=== PATIENT | male | born 1950 | race Caucasian/White ===

== ENCOUNTER 2018-10-12 08:09 | Observation (INO) ==
[2018-10-12 08:43] LABS: Basophils # (auto) 0.02 K/uL (0-0.2); Basophils % (auto) 0.2 %; Eosinophils # (auto) 0.21 K/uL (0-0.5); Eosinophils % (auto) 2.4 %; Hematocrit (blood only) 43.4 % (42-52); Hemoglobin 14.7 g/dL (14.0-18.0); Immature Granulocytes # (auto) 0.02 K/uL (0.00-0.02); Immature Granulocytes % (auto) 0.2 %; Lymphocytes # (auto) 1.09 K/uL (1.2-3.4); Lymphocytes % (auto) 12.4 %; Mean Corpuscular Hgb Conc 33.9 g/dL (32-36); Mean Platelet Volume 9.4 fL (7.4-10.4); Monocytes # (auto) 0.59 K/uL (0.11-0.59); Monocytes % (auto) 6.7 %; Neutrophils # (auto) 6.83 K/uL (1.4-6.5); Neutrophils % (auto) 78.1 %; Platelet Count 220 K/uL (130-400); RDW Coefficient of Variation 13.8 % (11.5-14.5); RDW Standard Deviation 45.4 fL (36.4-46.3); Red Blood Count 4.82 M/uL (4.7-6.1); White Blood Count 8.76 K/uL (4.8-10.8)
[2018-10-12 08:52] LABS: iSTAT Creatinine 1.1 mg/dl (0.6-1.3); iSTAT Ionized Calcium 1.2 mmol/l (1.12-1.32); iSTAT Potassium 4.5 mEq/L (3.3-5.0)
[2018-10-12 09:00] LABS: Alanine Aminotransferase 35 U/L (12-78); Albumin Level 3.7 gm/dl (3.4-5.0); Aspartate Aminotransferase 20 U/L (15-37); BUN Creatinine Ratio 14.3 (10-20); Blood Urea Nitrogen 17 mg/dl (7-18); Calcium 9.2 mg/dl (8.5-10.1); Carbon Dioxide 28 mmol/L (21-32); Chloride 110 mmol/L (98-107); Creatinine Clr Calc Pharmacy 75.1 ml/min; Est GFR (African American) 71.6; Est GFR (Non-African American) 61.8; Glucose 131 mg/dl (70-99); Magnesium 2.3 mg/dl (1.8-2.4); Potassium 4.7 mmol/L (3.5-5.1); Sodium 141 mmol/L (136-145)
[2018-10-12 09:05] LABS: Alkaline Phosphatase 69 U/L (45-117); Bilirubin,Total 0.6 mg/dl (0.2-1); Globulin 3.6 gm/dl (2.5-4.0); Total Protein 7.3 gm/dl (6.4-8.2); Troponin I < 0.015 ng/ml (0-0.045)
[2018-10-12 09:06] LABS: Partial Thromboplastin Ratio 0.9; Partial Thromboplastin Time 25.7 Seconds (21.0-31.0); Prothrombin Time 10.3 Seconds (9.0-12.0)
[2018-10-12] MEDS ORDERED: OPTIRAY 320 125ml IV PRN (09:10)
--- NOTE | 2018-10-12 09:26 | CT Scan Report ---
CT head/brain wo con CLINICAL HISTORY: 68 years-old Male with Stroke evaluation . Acute strokelike symptoms TECHNIQUE: Multiple axial CT images of the head were obtained without contrast. A dose lowering tech nique was utilized adhering to the principles of ALARA. COMPARISON: CTA had neck of same day. FINDINGS: No acute intracranial hemorrhage, midline shift, intracranial mass, hydrocephalus, territorial ischem ia or abnormal extra-axial collection. Mild age-related involutional changes. Senescent calcification s of the lentiform nuclei. Mild degree of patchy white matter hypodensities suggest chronic microvasc ular ischemic disease. Encephalomalacia of the anteromedial left frontal lobe compatible with area of remote infarct. Mild degree of cerebral vascular calcifications are noted. The calvarium is intact. The paranasal sinuses, mastoid air cells, and middle ear cavities are clear . IMPRESSION: 1. No acute intracranial abnormality. 2. Suggestion of mild chronic microvascular ischemic disease with encephalomalacia about the anterome dial left frontal lobe compatible with remote infarct. The above report was generated using voice recognition software. It may contain grammatical, syntax o r spelling errors. Electronically signed by: Ruben Joshua M.D. 10/12/2018 9:25 AM
--- NOTE | 2018-10-12 09:36 | CT Scan Report ---
CT angio neck with con, CT angio head w con CLINICAL HISTORY: 68 years-old Male with cva. Acute strokelike symptoms COMPARISON STUDY: CT head of same day TECHNIQUE: Following the IV administration of 120 mL of Optiray 320, CT angiogram of the head and nec k was performed from the aortic arch to the skull base. Images are reviewed in the axial, sagittal, a nd coronal planes. 3-D MIPS images are created and assessed. IV contrast was administered without com plication. All measurements were calculated based on NASCET criteria. A dose lowering technique was utilized adhering to the principles of ALARA. CT DOSE: 1218.58 mGy.cm FINDINGS: Imaged opacified pulmonary arterial tree is unremarkable. The imaged bilateral subclavian arteries ap pear patent. Bilateral common carotid arteries are patent. Mild mixed plaque about the right carotid bulb results in less than 50% luminal narrowing. Severe mixed plaque of the left carotid bulb results in approximately 50% luminal narrowing of the proximal left ICA (image 275 series 6). Calcified plaq ue about the bilateral cavernous and supraclinoid segments without high-grade stenosis. The imaged bi lateral middle and anterior cerebral arteries appear normal. Anterior communicating artery appears no rmal. The left vertebral artery emanates strictly from the aortic arch. Calcified plaque at the origin of t he left vertebral artery is noted without high-grade stenosis. Vertebral arteries appear to be codomi nant and are widely patent. The basilar and bilateral posterior cerebral arteries are patent and with in normal limits. Cerebral venous sinuses are patent. No pneumothorax. The lung apices appear clear. Subcentimeter hypodense left thyroid nodule. No adenop athy. Orbits are unremarkable. Multilevel degenerative changes of the cervical spine. Mastoid air neema ls and middle ear cavities are clear. Mild mucosal thickening of the maxillary sinuses. No abnormal i ntra-axial enhancement. Hypodensity of the anteromedial left frontal lobe is suggestive of encephalom alacia from prior infarct. IMPRESSION: 1. No aneurysm, dissection, high-grade stenosis or proximal branch occlusion. 2. Severe mixed plaque about the left carotid bulb results in 50% luminal narrowing of the proximal l eft ICA. 3. Encephalomalacia about the anteromedial left frontal lobe from remote infarct. The above report was generated using voice recognition software. It may contain grammatical, syntax o r spelling errors. Electronically signed by: Ruben Joshua M.D. 10/12/2018 9:35 AM
--- NOTE | 2018-10-12 12:49 | History & Physical Report ---
Date of Service October 12, 2018 Assessment & Plan (1) Aphasia: -Admit to telemetry -Patient presenting after he developed expressive aphasia for about 15 to 20 minutes at 630 this morning -History of prior CVA 06/2016 that resulted in right CEA -In the ED, head CT and head/neck CTA negative for acute findings; neck CTA shows severe mixed plaque about the left carotid bulb results in 50% luminal narrowing of the proximal left ICA -Patient already receiving high intensity statin, dual antiplatelet therapy with aspirin and Brilinta (had coronary stents placed 06/2018) -Obtain brain MRI and EEG as per neurology recommendations -Neuroccks -Recently had echo 06/2018 at [facility], will obtain records; no need to repeat at this time (2) CAD (coronary artery disease): -History of stents in 2008 and 06/2018 -Continue beta-tamar, statin, aspirin, Brilinta (3) DVT prophylaxis: -SCDs, ambulate History of Present Illness Chief Complaint: Difficulty speaking Primary Care Provider: Porsha Junior PA-C 68-year-old male who presents to the ED with difficulty speaking. Patient was driving to [place] from [place] early this morning and around 6:30 AM while driving, he developed expressive aphasia. Patient's was with him at the time and reports that he was only able to get a couple of words out. Symptoms lasted for about 15 to 20 minutes and resolved on their own. There is no facial droop or drooling noted. Patient denies unilateral weakness, numbness, tingling. No headache, blurred or double vision. Patient reports he otherwise been feeling well recently. No chest pain or shortness of breath. Denies abdominal pain, nausea, vomiting, diarrhea. No lightheadedness, dizziness, diaphoresis, syncopal events. He denies any urinary symptoms. In the ED, head CT and head/neck CTA are all negative for acute findings. Labs are unremarkable. Allergies Allergy/AdvReac Type Severity Reaction Status Date / Time No Known Allergies Allergy Unverified 10/12/18 08:48 Home Medications Home Medications Medication Instructions Recorded Confirmed Type aspirin [Aspir-81] 81 mg PO DAILY 10/12/18 10/12/18 History famotidine 20 mg PO BID 10/12/18 10/12/18 History fenofibric acid (choline) 135 mg PO DAILY 10/12/18 10/12/18 History gabapentin 100 mg PO HS 10/12/18 10/12/18 History glucosamine sulfate [Glucosamine] 500 mg PO DAILY 10/12/18 10/12/18 History metoprolol tartrate 25 mg PO BID 10/12/18 10/12/18 History rosuvastatin 30 mg PO HS 10/12/18 10/12/18 History ticagrelor [Brilinta] 90 mg PO BID 10/12/18 10/12/18 History Past Med/Surg History Medical History RLS (restless legs syndrome) (Chronic) Hemochromatosis (Chronic) CAD (coronary artery disease) (Chronic) ~ 2009 - 3 stents to LAD 06/2018 - stents x 2 to unknown vessel CVA (cerebral vascular accident) (Chronic) Surgical History History of right-sided carotid endarterectomy (Chronic) History of appendectomy (Chronic) Family History Mother Diabetes Social History Preferred Language: Uzbek Communication Ability: Effective Mixologist Required: No Beliefs That Will Affect Care: None Current Living Situation: Spouse Other Information That Helps Us Care for You: No Feels Safe at Home: Yes Safety Concerns: Feels Safe At This Time Smoking Status: Never smoker Hx Alcohol Use: Yes Alcohol type: beer Alcohol Intake Frequency: Rarely Hx Substance Use: No Review of Systems Review of Systems: ROS per HPI, all other systems reviewed and negative Physical Exam Constitutional: WD/WN, vitals as above Eyes: PERRL, conjunctivae normal, anicteric sclerae ENMT: external ear and nose normal, oropharynx normal Respiratory: normal respiratory effort, lungs clear to auscultation Cardiovascular: Rate/Rhythm: regular rate and regular rhythm Vessels: normal peripheral pulses Extremities: no edema Gastrointestinal (Abdomen): normal bowel sounds, soft, nontender, no he patosplenomegaly Musculoskeletal: no cyanosis or clubbing, extremities motor strength 5/5 Skin: no rashes, warm and dry Neurologic: PERRL, EOMI, accommodation nl, no face palsy, no dysarthria moves all extremities and awake Motor/Sensory: no pronator drift Coordination: normal azdkwf-ji-seut test and normal dhsn-cm-ohcg test Psychiatric: A+Ox3, euthymic affect Results & Data Vital Signs (Past 12 Hours) Vital Signs Temp Pulse Pulse Resp BP BP Pulse Ox 10/12/18 12:04 63 16 125/69 10/12/18 11:05 58 L 16 115/51 L 10/12/18 10:37 61 16 114/70 10/12/18 08:59 60 16 139/117 H 98 10/12/18 08:15 36.9 C 59 L 18 119/64 96 Laboratory Results Short CBC 10/12/18 Range/Units 08:34 WBC 8.76 (4.8-10.8) K/uL Hgb 14.7 (14.0-18.0) g/dL Hct 43.4 (42-52) % Plt Count 220 (130-400) K/uL BMP 10/12/18 08:34 Sodium 141 Potassium 4.7 Chloride 110 H Carbon Dioxide 28 BUN 17 Creatinine 1.20 Glucose 131 H Calcium 9.2 Cardiac Enzymes 10/12/18 Range/Units 08:34 Troponin I < 0.015 (0-0.045) ng/ml Liver Function 10/12/18 Range/Units 08:34 Total Bilirubin 0.6 (0.2-1) mg/dl AST 20 (15-37) U/L ALT 35 (12-78) U/L Alkaline Phosphatase 69 (45-117) U/L Albumin 3.7 (3.4-5.0) gm/dl Diagnostic Findings HEAD CT IMPRESSION: 1. No acute intracranial abnormality. 2. Suggestion of mild chronic microvascular ischemic disease with encephalomalacia about the anteromedial left frontal lobe compatible with remote infarct. HEAD/NECL CTA IMPRESSION: 1. No aneurysm, dissection, high-grade stenosis or proximal branch occlusion. 2. Severe mixed plaque about the left carotid bulb results in 50% luminal narrowing of the proximal left ICA. 3. Encephalomalacia about the anteromedial left frontal lobe from remote infarct. Code Status & VTE Plan VTE Prophylaxis Plan VTE Prophylaxis will be ordered: Yes Supervising Physician Co-Signing Physician Notes Patient is a 68-year-old male with history of coronary artery disease, CVA, S/P right carotid endarterectomy and other problems presents with history of transient expressive aphasia which currently resolved. MRI brain showed no acute lesions. Currently symptoms resolved. Patient is thought to have TIA. Plan to continue aspirin, Brilinta, Crestor. Will obtain EEG as per neurology recommendations. CTA suggestive of 50% luminal narrowing of the proximal left ICA. Will check lipid panel and increase Crestor to 40 mg if LDL greater than 70. Appreciate neurology input. Will observe overnight. Will recommend follow-up with vascular surgery as outpatient upon discharge. On exam patient is moderately built and nourished, no apparent distress, normocephalic atraumatic, lungs are clear to auscultation, S1-S2, no murmur, abdomen soft nontender, grossly no focal neurological deficits, no pedal edema. I personally reviewed the record. Patient is interviewed and examined at bedside. Patient's care is coordinated with Natalia Grant JEWELRY ESTIMATOR. Please refer to the documentation above for details of patient's presentation and for discussion of other issues.
[2018-10-12] MEDS ORDERED: GADOBUTROL 65ML VIAL IV PRN (12:51)
--- NOTE | 2018-10-12 13:36 | Magnetic Resonance Report ---
MR brain wo/w con HISTORY: 68 years-old Male CVA acute strokelike symptoms COMPARISON: CT head, CTA head neck of same day TECHNIQUE: Multiplanar multisequence MRI of the brain was obtained both with and without the use of 1 0.5 mL Gadavist FINDINGS: Road Mixer Operator localizer images demonstrate no gross extracranial abnormality. There is no restricted diffusio n to suggest acute or subacute infarction. Midline structures including the corpus callosum, brainste m, optic chiasm, pituitary and pineal glands appear unremarkable on the sagittal T1 series. No cerebe llar tonsillar herniation. Degenerative changes noted about the imaged cervical spine. No acute intra cranial hemorrhage, midline shift, abnormal extra axial collection, hydrocephalus or intracranial mas s. Encephalomalacia and gliosis about the anteromedial left frontal lobe near the vertex compatible w ith area of remote infarct. Mild to moderate patchy T2/FLAIR hyperintensities are noted about the whi te matter suggestive of chronic microvascular ischemic disease. There is no abnormal intra-axial or e xtra-axial enhancement identified. The major flow voids at the level of the skull base appear patent. Mastoid air cells are clear. Mild mucosal thickening of the nasal turbinates and ethmoid air cells. The skull, orbits and soft tissues are unremarkable. IMPRESSION: 1. No acute intracranial abnormality, specifically no acute or subacute infarction. 2. No abnormal enhancement. 3. Suggestion of mild to moderate chronic microvascular ischemic disease. 4. Remote infarct about the anterosuperior left frontal lobe near the vertex. The above report was generated using voice recognition software. It may contain grammatical, syntax o r spelling errors. Electronically signed by: Ruben Joshua M.D. 10/12/2018 1:35 PM
[2018-10-12] MEDS ORDERED: ACETAMINOPHEN 325 MG TAB PO PRN (13:48)
[2018-10-12] MEDS ORDERED: PHARMACIST DISCHARGE MED REC CONSULT PRN (13:48)
--- NOTE | 2018-10-12 14:08 | Neurology Consultation ---
Date of Consultation October 12, 2018 Assessment & Plan (1) TIA (transient ischemic attack): 1. MRI- no evidence of new stroke 2. primary team requesting records from [facility] for TTE or whether to repeat was just done at [facility] 3. continue aspirin 81 mg and Brillinta 90 mg BID for now 4. cardiology as outpatient for any further evaluation 5. continue Rosuvastatin 30 mg lipids not checked - will defer to cardiology for any changes 6. PT/OT speech for discharge needs- does not appear to be any current needs 7. CTA- severe mixed plaque -left carotid bulb 50 % luminal narrowing- being followed treating medically at this point- vascular for further review as outpatient 8. optimize DM, HLD, HTN LDL <70 Supervising Physician Co-Signing Physician Notes I have seen and discussed above patient with Dr Mariusz Montenegro, neurology I reviewed the above case, reviewed the imaging studies and the history and briefly examined this man in the company of his and by cell phone with his daughter who is a radiologist here in [place]. This man has a history of a prior right carotid endarterectomy, a silent left subcortical frontal infarction, and known 50% stenosis apparently of the left internal carotid all according to my review of his history from [facility] where almost all of his recent medical care has been rendered He had a myocardial infarction this past spring, had 2 stents placed, and had hi s aspirin and Plavix combination switched to aspirin and Brilinta as noted above and was doing well up until this morning when on route from his home to [place] on room 522 between [facility] and [facility], he suddenly lost the ability to speak. He was able to operate a motor vehicle, had no issues with comprehension, and by the time he reached [place] the event had cleared completely leaving and is awake no fixed sensorimotor deficits involving the right hemisphere, no facial weakness or numbness, and no residual speech defect. He apparently contacted his daughter who suggested that in lieu of stopping at [facility] that he presented himself here to [place] and indeed he did so, I was informed by the ER staff, discussed his case, and suggested that in addition to the CT angiographic studies and CT scans, that he have an MRI of the brain and an EEG. The former has shown no evidence for recent infarction and the latter is going to be canceled as upon my review of the history there is nothing about this is suggest a focal seizure. At this time the evaluation shows 50% stenosis of the left internal carotid artery with apparently fairly prominent plaque at the region of the left carotid bulb according to the radiology report. I do not know if this is worse than a prior study at [facility] and not sure the comparison between the 2 is going to be possible may actually be more of academic impractical importance of his is clear this man has had a transient ischemic event involving the left hemisphere which fortunately his left nothing clinically or image was in its wake I would not make any changes in his antiplatelet therapy here and will suggest that he be observed overnight and that he contact his vascular surgeon and network internship at [facility] tomorrow for their input. I would not be surprised if they simply recommend taking an additional baby aspirin a day and be seen clinically within the next week or 2 If he is stable overnight I certainly would clear him for discharge and I do not think neurology would need to visit him again in the afternoon to approve this. My suspicions are that he would be a candidate for left carotid endarterectomy based on the presence of fairly prominent plaque despite the lack of stenosis but insufficient time may have evolved since the myocardial infarction and e lective surgery may be simply good should be avoided for another few months. All these decisions of course are going to rest with his prior vascular surgeon and cardiology team at [facility] Mariusz Montenegro MD History of Present Illness Reason for Consultation: TIA/CVA Requesting Physician: Fer Lawler MD Attending Physician: Fer Lawler MD History of Present Illness Kady is a 68 year old male with a [facility] right sided carotid endartectomy, RLS, CAD with stents placed in June 2018 after a heart attack June 25. He presented to the ED with difficulty speaking. He was driving to [employer] from [place] early this morning and around 6:30 AM while driving, he developed expressive aphasia. His was with him and encouraged him to stop for breakfast and she continued the drive to [employer]. It scarred her because he was driving but he didn't have any facial droop and it only lasted for about 15 to 20 minutes and resolved on their own. He had a stroke in the past but he didn't think anything was wrong but he got dress incorrectly and his knew something was wrong and brought him to [facility]. That is when they discovered the right carotid artery block and did a CEA. He is currently on Brilanta and aspirin after his heart attack because of the stent placement. He is a non smoker, minimal EtOH use. Denies unilateral weakness, or facial droop, numbness, tingling, CP, SOB, abdominal pain, nausea, vomiting, diarrhea,dizziness, diaphoresis, syncopal events. Allergies Allergy/AdvReac Type Severity Reaction Status Date / Time No Known Allergies Allergy Unverified 10/12/18 08:48 Home Medications Home Medications Medication Instructions Recorded Confirmed Type aspirin [Aspir-81] 81 mg PO DAILY 10/12/18 10/12/18 History famotidine 20 mg PO BID 10/12/18 10/12/18 History fenofibric acid (choline) 135 mg PO DAILY 10/12/18 10/12/18 History gabapentin 100 mg PO HS 10/12/18 10/12/18 History glucosamine sulfate [Glucosamine] 500 mg PO DAILY 10/12/18 10/12/18 History metoprolol tartrate 25 mg PO BID 10/12/18 10/12/18 History rosuvastatin 30 mg PO HS 10/12/18 10/12/18 History ticagrelor [Brilinta] 90 mg PO BID 10/12/18 10/12/18 History Patient History Medical History RLS (restless legs syndrome) (Chronic) Hemochromatosis (Chronic) CAD (coronary artery disease) (Chronic) ~ 2009 - 3 stents to LAD 06/2018 - stents x 2 to unknown vessel CVA (cerebral vascular accident) (Chronic) Surgical History History of right-sided carotid endarterectomy (Chronic) History of appendectomy (Chronic) Family History Mother Diabetes Social History Preferred Language: Urdu Communication Ability: Effective Industrial Hygiene Manager Required: No Beliefs That Will Affect Care: None Current Living Situation: Spouse Other Information That Helps Us Care for You: No Feels Safe at Home: Yes Safety Concerns: Feels Safe At This Time Smoking Status: Never smoker Hx Alcohol Use: Yes Alcohol type: beer Alcohol Intake Frequency: Rarely Hx Substance Use: No Physical Exam Physical Exam: Physical Exam: Constitutional: appearance nourished, healthy and normal Ears, Nose, Mouth and Throat: mucous membranes moist, no injection and skin normal, eyes normal Cardiovascular: normal S-1 and S-2 and regular rate and rhythm Respiratory: clear to auscultation (CTA) and no rales, rhonchi or wheeze Musculoskeletal: no peripheral edema and good distal pulses Skin: no stigmata of neurocutaneous disease noted and normal and intact, well healed right sided neck scar Eyes: extraocular muscles intact (EOMI) and pupils equal, round and reactive to light (PERRL) NEUROLOGIC EXAMINATION: Mental status: Alert and interactive Oriented to full date and location Oriented to person, place, identifies pen, button, thumb Speech fluent with no evidence of aphasia Cranial Nerves slight flattening left nasolabial fold Reflexes: Deep tendon reflexes were symmetrical and graded 2/5 Sensory: no sensory deficits, light cool touch Coordination: finger to nose no bi pass, rapid hand movements intact bilaterally Gait/Stance: Posture normal. sitting up Motor: Negative for pronator drift of out stretched arms with eyes closed. Strength: hand featheredger and reducer machine biceps triceps deltoids 5/5, hip flex plantar flex ext 5/5 bilaterally Results & Data Vital Signs (Past 12 Hours) Vital Signs Temp Pulse Pulse Resp BP BP Pulse Ox 10/12/18 12:04 63 16 125/69 10/12/18 11:05 58 L 16 115/51 L 10/12/18 10:37 61 16 114/70 10/12/18 08:59 60 16 139/117 H 98 10/12/18 08:15 36.9 C 59 L 18 119/64 96 Laboratory Results Abnormal lab results 10/12/18 10/12/18 10/12/18 Range/Units 08:20 08:34 08:34 Neut # (Auto) 6.83 H (1.4-6.5) K/uL Lymph # (Auto) 1.09 L (1.2-3.4) K/uL Chloride 110 H (98-107) mmol/L Glucose 131 H (70-99) mg/dl POC Glucose 117 H (70-99) POC Glucose (other) (70-99) mg/dl 10/12/18 Range/Units 08:40 Neut # (Auto) (1.4-6.5) K/uL Lymph # (Auto) (1.2-3.4) K/uL Chloride (98-107) mmol/L Glucose (70-99) mg/dl POC Glucose (70-99) POC Glucose (other) 129 H (70-99) mg/dl Diagnostic Findings CT head- No acute intracranial abnormality. Suggestion of mild chronic microvascular ischemic disease with encephalomalacia about the anteromedial left frontal lobe compatible with remote infarct. CTA head/neck-No aneurysm, dissection, high-grade stenosis or proximal branch occlusion. Severe mixed plaque about the left carotid bulb results in 50% ze gloria narrowing of the proximal left ICA. Encephalomalacia about the anteromedial left frontal lobe from remote infarct. MRI brain-No acute intracranial abnormality, specifically no acute or subacute infarction. No abnormal enhancement. Suggestion of mild to moderate chronic microvascular ischemic disease. Remote infarct about the anterosuperior left frontal lobe near the vertex.
--- NOTE | 2018-10-12 14:10 | Emergency Department Note ---
Entered by Angelica Abreu acting as a scribe for History of Present Illness General Chief complaint: Stroke/CVA Symptoms Stated complaint: SPEECH DIFFICULTY Source: patient History of Present Illness Provider complaint: stroke symptoms Onset (ago): hour(s) less than 1 Location: head Pain Consistency: + now resolved Quality: + other (slurred speech) Associated symptoms: + denies other symptoms The patient is a 68 y/o male with a history of stroke, CVA and stents in place, who presents to the emergency department for evaluation of now resolved slurred speech that began prior to arrival. The patient states that he was driving when he started having slurred speech and issues getting the words out. He notes that this lasted for roughly 15 minutes. The patient reports that two years ago he had a mini stroke caused by a blockage in the right carotid artery. During that episode the family states that he has weakness, slurred speech, could not get around properly, or tie his shoes. The patient also reports that he had a heart attack in June and two stents placed in his heart. The patient denies a history of a-fib, weakness, numbness, vision changes, and any other symptoms. He notes that he is on blood thinners. Home Medications Home Medications Medication Instructions Recorded Confirmed Type aspirin [Aspir-81] 81 mg PO DAILY 10/12/18 10/12/18 History famotidine 20 mg PO BID 10/12/18 10/12/18 History fenofibric acid (choline) 135 mg PO DAILY 10/12/18 10/12/18 History gabapentin 100 mg PO HS 10/12/18 10/12/18 History glucosamine sulfate [Glucosamine] 500 mg PO DAILY 10/12/18 10/12/18 History metoprolol tartrate 25 mg PO BID 10/12/18 10/12/18 History rosuvastatin 30 mg PO HS 10/12/18 10/12/18 History ticagrelor [Brilinta] 90 mg PO BID 10/12/18 10/12/18 History Allergies Allergy/AdvReac Type Severity Reaction Status Date / Time No Known Allergies Allergy Unverified 10/12/18 08:48 Past Med/Surg History Medical History RLS (restless legs syndrome) (Chronic) Hemochromatosis (Chronic) CAD (coronary artery disease) (Chronic) ~ 2008 - 3 stents to LAD 06/2018 - stents x 2 to unknown vessel CVA (cerebral vascular accident) (Chronic) Surgical History History of right-sided carotid endarterectomy (Chronic) History of appendectomy (Chronic) Family History Mother Diabetes Social History Feels Safe at Home: Yes Smoking Status: Never smoker Hx Alcohol Use: Yes Alcohol Intake Frequency: Rarely Review of Systems See HPI for pertinent positives & negatives. and A total of 10 systems reviewed and were otherwise negative Physical Exam Vital Signs Vital Signs - 24 hr 10/12/18 08:15 10/12/18 08:59 10/12/18 10:37 Temperature 36.9 C Temperature Source Oral Sepsis Recent Fever Within 48 Hours No Sepsis New/Unexplained Change in Mental Status No Sepsis Action Taken by Nursing No Action Required Pulse Rate 59 L Pulse Rate [Apical] 60 61 Respiratory Rate 18 16 16 Blood Pressure 119/64 Blood Pressure [Right Arm] 139/117 H 114/70 Blood Pressure Mean 82 Blood Pressure Mean [Right Arm] 124 84 Pulse Oximetry 96 98 Oxygen Delivery Method Room Air Room Air 10/12/18 11:05 Temperature Temperature Source Sepsis Recent Fever Within 48 Hours Sepsis New/Unexplained Change in Mental Status Sepsis Action Taken by Nursing Pulse Rate Pulse Rate [Apical] 58 L Respiratory Rate 16 Blood Pressure Blood Pressure [Right Arm] 115/51 L Blood Pressure Mean Blood Pressure Mean [Right Arm] 72 Pulse Oximetry Oxygen Delivery Method GENERAL: Sitting up in bed, alert, well appearing, well nourished, no distress, non-toxic EYE EXAM: normal conjunctiva. PERRLA OROPHARYNX: no exudate, no erythema, lips, buccal mucosa, and tongue normal and mucous membranes are moist NECK: supple, no nuchal rigidity, no adenopathy, non-tender LUNGS: Clear to auscultation. Normal chest wall mechanics HEART: no murmurs, S1 normal and S2 normal ABDOMEN: abdomen soft, non-tender, normo-active bowel sounds, no masses, no rebound or guarding. BACK: Back is symmetrical on inspection and there is no deformity, no midline tenderness, no CVA tenderness. SKIN: no rashes and no bruising UPPER EXTREMITIES: upper extremities are grossly normal. Rapid altering movement of upper extremities intact. LOWER EXTREMITIES: No pitting edema. NEURO EXAM: Normal sensorium, cranial nerves II-XII intact, normal speech, no weakness of arms, no weakness of legs. No drift. [id number] intact. Course ED COURSE: Vital signs were reviewed and were hypertensive The patients medical record was reviewed The above diagnostic studies were performed and reviewed. ED treatments and interventions as stated above. 0822: The patient was evaluated in room A02. A complete history and physical examination was performed. 1005: I spoke with Dr. Montenegro- Neurology, will evaluate for further management. 1030: Upon reevaluation, the patient is feeling better and updated on his results. I discussed my findings with the patient and he understands and agrees with the treatment plan. Based on the patients age, coexisting illnesses, exam and lab findings the decision to treat as an inpatient was made. 1041: Dr. Katey Clark Hospitalist will further evaluate the patient. The patient remained stable while under my care. The patient will be evaluated for further management. Administered Medications Gadobutrol (Gadavist 65ml) 10.5 ml IV ONCE PRN PRN Reason: Interaction Checking Stop: 10/16/18 12:50 Last Admin: 10/12/18 12:51 Dose: 10.5 ml Documented by: [id number] Discontinued Medications Ioversol (Optiray 320 125ml) 120 ml IV ONCE PRN PRN Reason: Interaction Checking Stop: 10/16/18 09:09 Last Admin: 10/12/18 09:10 Dose: 120 ml Documented by: [id number] Medical Decision Making Differential Diagnosis Differential Diagnosis includes but is not limited to ischemic Stroke, hemorrhagic stroke, bells palsy, mass, neoplasm, migraine headache, seizure, subarachnoid hemorrhage, TIA, and transient global amnesia. Medical Records Attestation: I reviewed the patient's medical records. Home Medications Current Medication List: was personally reviewed by me Laboratory Data Attestation: I reviewed the patient's lab results. Result diagrams: 10/12/18 08:34 10/12/18 08:34 Lab Results 10/12/18 10/12/18 10/12/18 Range/Units 08:20 08:34 08:34 WBC 8.76 (4.8-10.8) K/uL RBC 4.82 (4.7-6.1) M/uL Hgb 14.7 (14.0-18.0) g/dL POC Hgb (14.0-18.0) g/dl Hct 43.4 (42-52) % POC Hct (42-52) % MCV 90.0 (80-100) fL MCH 30.5 (25-34) pg MCHC 33.9 (32-36) g/dL RDW Std Deviation 45.4 (36.4-46.3) fL RDW Coeff of Deysi 13.8 (11.5-14.5) % Plt Count 220 (130-400) K/uL MPV 9.4 (7.4-10.4) fL Immature Gran % (Auto) 0.2 % Neut % (Auto) 78.1 % Lymph % (Auto) 12.4 % [place] % (Auto) 6.7 % Eos % (Auto) 2.4 % Baso % (Auto) 0.2 % Immature Gran # (Auto) 0.02 (0.00-0.02) K/uL Neut # (Auto) 6.83 H (1.4-6.5) K/uL Lymph # (Auto) 1.09 L (1.2-3.4) K/uL [place] # (Auto) 0.59 (0.11-0.59) K/uL Eos # (Auto) 0.21 (0-0.5) K/uL Baso # (Auto) 0.02 (0-0.2) K/uL PT 10.3 (9.0-12.0) Seconds INR 1.0 (0.9-1.1) APTT 25.7 (21.0-31.0) Seconds PTT Ratio 0.9 POC Sodium (135-144) mEq/L Sodium (136-145) mmol/L POC Potassium (3.3-5.0) mEq/L Potassium (3.5-5.1) mmol/L POC Chloride (101-112) mEq/L Chloride (98-107) mmol/L Carbon Dioxide (21-32) mmol/L POC Total CO2 (24-31) mEq/l Anion Gap (3-11) POC Anion Gap (16-25) mmol/L POC BUN (7-18) mg/dl BUN (7-18) mg/dl Creatinine (0.6-1.4) mg/dl POC Creatinine (0.6-1.3) mg/dl Est Cr Clr Drug Dosing ml/min Est GFR ( Amer) Est GFR (Non-Af Amer) BUN/Creatinine Ratio (10-20) Glucose (70-99) mg/dl POC Glucose 117 H (70-99) POC Glucose (other) (70-99) mg/dl Calcium (8.5-10.1) mg/dl POC Ioniz Calcium John (1.12-1.32) mmol/l Magnesium (1.8-2.4) mg/dl Total Bilirubin (0.2-1) mg/dl AST (15-37) U/L ALT (12-78) U/L Alkaline Phosphatase (45-117) U/L Troponin I (0-0.045) ng/ml Total Protein (6.4-8.2) gm/dl Albumin (3.4-5.0) gm/dl Globulin (2.5-4.0) gm/dl Albumin/Globulin Ratio (0.9-2) Blood Type Antibody Screen 10/12/18 10/12/18 10/12/18 Range/Units 08:34 08:34 08:40 WBC (4.8-10.8) K/uL RBC (4.7-6.1) M/uL Hgb (14.0-18.0) g/dL POC Hgb 15.0 (14.0-18.0) g/dl Hct (42-52) % POC Hct 44 (42-52) % MCV (80-100) fL MCH (25-34) pg MCHC (32-36) g/dL RDW Std Deviation (36.4-46.3) fL RDW Coeff of Deysi (11.5-14.5) % Plt Count (130-400) K/uL MPV (7.4-10.4) fL Immature Gran % (Auto) % Neut % (Auto) % Lymph % (Auto) % [place] % (Auto) % Eos % (Auto) % Baso % (Auto) % Immature Gran # (Auto) (0.00-0.02) K/uL Neut # (Auto) (1.4-6.5) K/uL Lymph # (Auto) (1.2-3.4) K/uL [place] # (Auto) (0.11-0.59) K/uL Eos # (Auto) (0-0.5) K/uL Baso # (Auto) (0-0.2) K/uL PT (9.0-12.0) Seconds INR (0.9-1.1) APTT (21.0-31.0) Seconds PTT Ratio POC Sodium 141 (135-144) mEq/L Sodium 141 (136-145) mmol/L POC Potassium 4.5 (3.3-5.0) mEq/L Potassium 4.7 (3.5-5.1) mmol/L POC Chloride 104 (101-112) mEq/L Chloride 110 H (98-107) mmol/L Carbon Dioxide 28 (21-32) mmol/L POC Total CO2 26 (24-31) mEq/l Anion Gap 3.0 (3-11) POC Anion Gap 16.0 (16-25) mmol/L POC BUN 18 (7-18) mg/dl BUN 17 (7-18) mg/dl Creatinine 1.20 (0.6-1.4) mg/dl POC Creatinine 1.1 (0.6-1.3) mg/dl Est Cr Clr Drug Dosing 75.1 ml/min Est GFR ( Amer) 71.6 Est GFR (Non-Af Amer) 61.8 BUN/Creatinine Ratio 14.3 (10-20) Glucose 131 H (70-99) mg/dl POC Glucose (70-99) POC Glucose (other) 129 H (70-99) mg/dl Calcium 9.2 (8.5-10.1) mg/dl POC Ioniz Calcium John 1.20 (1.12-1.32) mmol/l Magnesium 2.3 (1.8-2.4) mg/dl Total Bilirubin 0.6 (0.2-1) mg/dl AST 20 (15-37) U/L ALT 35 (12-78) U/L Alkaline Phosphatase 69 (45-117) U/L Troponin I < 0.015 (0-0.045) ng/ml Total Protein 7.3 (6.4-8.2) gm/dl Albumin 3.7 (3.4-5.0) gm/dl Globulin 3.6 (2.5-4.0) gm/dl Albumin/Globulin Ratio 1.0 (0.9-2) Blood Type B Positive Antibody Screen NEGATIVE Imaging Data Radiologist's Impression: Radiology results as stated below per my review and th e radiologist's interpretation: CT angio neck with con, CT angio head w con CLINICAL HISTORY: 68 years-old Male with cva. Acute strokelike symptoms COMPARISON STUDY: CT head of same day TECHNIQUE: Following the IV administration of 120 mL of Optiray 320, CT angiogram of the head and neck was performed from the aortic arch to the skull base. Images are reviewed in the axial, sagittal, and coronal planes. 3-D MIPS images are created and assessed. IV contrast was administered without complication. All measurements were calculated based on NASCET criteria. A dose lowering technique was utilized adhering to the principles of ALARA. CT DOSE: 1218.58 mGy.cm FINDINGS: Imaged opacified pulmonary arterial tree is unremarkable. The imaged bilateral subclavian arteries appear patent. Bilateral common carotid arteries are patent. Mild mixed plaque about the right carotid bulb results in less than 50% luminal narrowing. Severe mixed plaque of the left carotid bulb results in approximately 50% luminal narrowing of the proximal left ICA (image 275 series 6). Calcified plaque about the bilateral cavernous and supraclinoid segments without high-g rade stenosis. The imaged bilateral middle and anterior cerebral arteries appear normal. Anterior communicating artery appears normal. The left vertebral artery emanates strictly from the aortic arch. Calcified plaque at the origin of the left vertebral artery is noted without high-grade stenosis. Vertebral arteries appear to be codominant and are widely patent. The basilar and bilateral posterior cerebral arteries are patent and within normal limits. Cerebral venous sinuses are patent. No pneumothorax. The lung apices appear clear. Subcentimeter hypodense left thyroid nodule. No adenopathy. Orbits are unremarkable. Multilevel degenerative changes of the cervical spine. Mastoid air cells and middle ear cavities are clear. Mild mucosal thickening of the maxillary sinuses. No abnormal intra-axial enhancement. Hypodensity of the anteromedial left frontal lobe is suggestive of encephalomalacia from prior infarct. IMPRESSION: 1. No aneurysm, dissection, high-grade stenosis or proximal branch occlusion. 2. Severe mixed plaque about the left carotid bulb results in 50% luminal narrowing of the proximal left ICA. 3. Encephalomalacia about the anteromedial left frontal lobe from remote i nfarct. The above report was generated using voice recognition software. It may contain grammatical, syntax or spelling errors. Electronically signed by: Ruben Joshua M.D. 10/12/2018 9:[address] head/brain wo con CLINICAL HISTORY: 68 years-old Male with Stroke evaluation . Acute strokelike symptoms TECHNIQUE: Multiple axial CT images of the head were obtained without contrast. A dose lowering technique was utilized adhering to the principles of ALARA. COMPARISON: CTA had neck of same day. FINDINGS: No acute intracranial hemorrhage, midline shift, intracranial mass, hydrocephalus, territorial ischemia or abnormal extra-axial collection. Mild age-related involutional changes. Senescent calcifications of the lentiform nuclei. Mild degree of patchy white matter hypodensities suggest chronic microvascular ischemic disease. Encephalomalacia of the anteromedial left frontal lobe compatible with area of remote infarct. Mild degree of cerebral vascular calcifications are noted. The calvarium is intact. The paranasal sinuses, mastoid air cells, and middle ear cavities are clear. IMPRESSION: 1. No acute intracranial abnormality. 2. Suggestion of mild chronic microvascular ischemic disease with encephalomalacia about the anteromedial left frontal lobe compatible with remote infarct. The above report was generated using voice recognition software. It may contain grammatical, syntax or spelling errors. Electronically signed by: Ruben Joshua M.D. 10/12/2018 9:[address] angio neck with con, CT angio head w con CLINICAL HISTORY: 68 years-old Male with cva. Acute strokelike symptoms COMPARISON STUDY: CT head of same day TECHNIQUE: Following the IV administration of 120 mL of Optiray 320, CT angiogram of the head and neck was performed from the aortic arch to the skull base. Images are reviewed in the axial, sagittal, and coronal planes. 3-D MIPS images are created and assessed. IV contrast was administered without complication. All measurements were calculated based on NASCET criteria. A dose lowering technique was utilized adhering to the principles of ALARA. CT DOSE: 1218.58 mGy.cm FINDINGS: Imaged opacified pulmonary arterial tree is unremarkable. The imaged bilateral subclavian arteries appear patent. Bilateral common carotid arteries are patent. Mild mixed plaque about the right carotid bulb results in less than 50% luminal narrowing. Severe mixed plaque of the left carotid bulb results in approximately 50% luminal narrowing of the proximal left ICA (image 275 series 6). Calcified plaque about the bilateral cavernous and supraclinoid segments without high- grade stenosis. The imaged bilateral middle and anterior cerebral arteries appear normal. Anterior communicating artery appears normal. The left vertebral artery emanates strictly from the aortic arch. Calcified plaque at the origin of the left vertebral artery is noted without high-grade stenosis. Vertebral arteries appear to be codominant and are widely patent. The basilar and bilateral posterior cerebral arteries are patent and within normal limits. Cerebral venous sinuses are patent. No pneumothorax. The lung apices appear clear. Subcentimeter hypodense left thyroid nodule. No adenopathy. Orbits are unremarkable. Multilevel degenerative changes of the cervical spine. Mastoid air cells and middle ear cavities are clear. Mild mucosal thickening of the maxillary sinuses. No abnormal intra-axial enhancement. Hypodensity of the anteromedial left frontal lobe is suggestive of encephalomalacia from prior infarct. IMPRESSION: 1. No aneurysm, dissection, high-grade stenosis or proximal branch occlusion. 2. Severe mixed plaque about the left carotid bulb results in 50% luminal narrowing of the proximal left ICA. 3. Encephalomalacia about the anteromedial left frontal lobe from remote infarct. The above report was generated using voice recognition software. It may contain grammatical, syntax or spelling errors. Electronically signed by: Ruben Joshua M.D. 10/12/2018 9:35 AM ECG Data Attestation: I personally reviewed and interpreted this ECG as follows: Indication: other (slurred speech) Rate (beats per minute): 62 Rhythm: sinus rhythm Findings: + other (normal axis, t-wave flattening in inferior lead) and + T-wave inversion (lead 3) Blood Pressure Blood Pressure Findings: Elevated blood pressure Blood Pressure Disposition: Referred to patients primary care provider [facility] Narrative Patient is a 68-year-old female who presents the ER with past medical history of IA and CVA for an episode of expressive aphasia. Last for about 15 minutes and completely resolved. He had no other complaints at this time. CT of the head was performed and shows old left frontal infarct. CTA of the head and neck shows internal carotid stenosis. Labs show no significant leukocytosis or anemia. INR is unremarkable. BMP along with LFTs bilirubin and troponin was unremarkable. Patient's daughter reviewed the images who is a radiologist. Discussed with neurology and update the patient and family at bedside. Patient was admitted for further work-up of stroke versus seizure. Impression & Plan Expressive aphasia, TIA (transient ischemic attack) Discharge Plan Visit Data *Final* Discharge Date/Time: 10/12/18 12:42 Chief Complaint: Stroke/CVA Symptoms Stated Complaint: SPEECH DIFFICULTY ED Provider: Dhaval Betts Discharge Problem: Expressive aphasia, TIA (transient ischemic attack) Patient Disposition: Admitted As Inpatient Discharge Instructions Interventions: ED Discharge Assessment Last Done: 10/12/18 12:42 The scribe's documentation has been prepared under my direction and personally reviewed by me in its entirety. I confirm that the note above accurately reflects all work, treatment, procedures, and medical decision making performed by me.
[2018-10-12 14:27] LABS: Estimated Average Glucose 114 mg/dl; Hemoglobin A1C 5.6 % (4.5-5.6)
[2018-10-12] MEDS: METOPROLOL TARTRATE 25 MG TAB PO SCH (20:06)
[2018-10-12] MEDS: FAMOTIDINE 20 MG TAB PO SCH (20:06)
[2018-10-12] MEDS: TICAGRELOR 90 MG TAB PO SCH (20:07)
[2018-10-12] MEDS ORDERED: Nursing to Pharmacy Communication ONE (20:39)
[2018-10-12] MEDS ORDERED: GABAPENTIN 100 MG CAP PO SCH (21:00)
[2018-10-12] MEDS ORDERED: ROSUVASTATIN CALCIUM 20 MG TAB PO SCH (21:00)
[2018-10-13 06:18] LABS: Basophils # (auto) 0.02 K/uL (0-0.2); Basophils % (auto) 0.3 %; Eosinophils # (auto) 0.27 K/uL (0-0.5); Eosinophils % (auto) 4.2 %; Hematocrit (blood only) 41.1 % (42-52); Hemoglobin 14.4 g/dL (14.0-18.0); Immature Granulocytes # (auto) 0.01 K/uL (0.00-0.02); Immature Granulocytes % (auto) 0.2 %; Lymphocytes # (auto) 1.46 K/uL (1.2-3.4); Lymphocytes % (auto) 22.6 %; Mean Corpuscular Volume 89.3 fL (80-100); Mean Platelet Volume 9.7 fL (7.4-10.4); Monocytes # (auto) 0.57 K/uL (0.11-0.59); Monocytes % (auto) 8.8 %; Neutrophils # (auto) 4.13 K/uL (1.4-6.5); Neutrophils % (auto) 63.9 %; Platelet Count 223 K/uL (130-400); RDW Coefficient of Variation 13.8 % (11.5-14.5); RDW Standard Deviation 44.9 fL (36.4-46.3); White Blood Count 6.46 K/uL (4.8-10.8)
[2018-10-13 07:05] LABS: BUN Creatinine Ratio 15.6 (10-20); Calcium 8.8 mg/dl (8.5-10.1); Creatinine Clr Calc Pharmacy 68.2 ml/min; Est GFR (African American) 64.4; Est GFR (Non-African American) 55.5; Potassium 3.9 mmol/L (3.5-5.1)
[2018-10-13] MEDS ORDERED: FENOFIBRATE NANOCRYSTALLIZED 145 MG TABLET PO SCH ×2 (09:00→21:00)
[2018-10-13] MEDS ORDERED: NON-FORMULARY MEDICATION (Glucosamine Sulfate [Glucosamine] 500 MG) PO SCH (09:00)
[2018-10-13] MEDS ORDERED: ASPIRIN 81 MG ECTAB PO SCH (09:00)
[2018-10-13] MEDS: METOPROLOL TARTRATE 25 MG TAB PO SCH (09:20)
[2018-10-13] MEDS: FAMOTIDINE 20 MG TAB PO SCH (09:21)
[2018-10-13] MEDS: TICAGRELOR 90 MG TAB PO SCH (09:21)
--- NOTE | 2018-10-13 12:04 | Hospitalist Progress Note ---
Date of Service October 13, 2018 Assessment & Plan (1) Aphasia: Transient ischemic Attack H/O Prior CVA 06/2016 that resulted in right CEA --Brain MRI:No acute intracranial abnormality, specifically no acute or subacute infarction. No abnormal enhancement. Suggestion of mild to moderate chronic microvascular ischemic disease. Remote infarct about the anterosuperior left frontal lobe near the vertex. --Head CTA:No aneurysm, dissection, high-grade stenosis or proximal branch occlusion. Severe mixed plaque about the left carotid bulb results in 50% luminal narrowing of the proximal left ICA. Encephalomalacia about the anteromedial left frontal lobe from remote infarct. --Neck CTA:No aneurysm, dissection, high-grade stenosis or proximal branch occlusion. Severe mixed plaque about the left carotid bulb results in 50% luminal narrowing of the proximal left ICA. Encephalomalacia about the anteromedial left frontal lobe from remote infarct. --Aphasia Resolved --Continue aspirin, Brilinta, statin --Appreciate Neurology Input --Plan to be evaluated by vascular surgery at [place] next week --Needs follow-up with neurology upon discharge (2) CAD (coronary artery disease): H/O stents in 2008 and 06/2018 Continue beta-tamar, statin, aspirin, Brilinta (3) DVT prophylaxis: SCDs, ambulate Code Status Full Code Disposition: Plan to discharge home today Subjective Patient is seen and examined at bedside Doing well today No recurrence of aphasia Denies any focal weakness Also denies any chest pain, shortness of breath, dizziness, nausea, abdominal pain Offers no other complaints Discussed with neurology today Review of Systems Review of Systems: All systems reviewed & are unremarkable except as noted in HPI & below Physical Exam Physical Exam: Physical Exam: Vitals signs as noted above General Appearance:Moderately built and nourished, no apparent distress Head: normocephalic, Atraumatic Eyes: normal inspection, EOMI Neck: supple, Trachea midline Respiratory/Chest: Normal breath sounds, CTA Cardiovascular: S1, S2, No murmur Abdomen/GI:Soft, Non tender, Bowel sounds present Extremities/Musculoskelatal:normal inspection, no edema Neurologic/Psych:AAOX3, grossly no focal neurological deficits Skin: normal color, warm Results & Data Vital Signs (Past 12 Hours) Vital Signs Temp Pulse Pulse Resp BP BP Pulse Ox 10/13/18 11:00 36.9 C 72 19 114/70 95 10/13/18 07:20 66 10/13/18 07:13 36.4 C L 62 19 115/74 97 10/13/18 03:33 36.7 C 63 18 99/63 L 94 Laboratory Results Short CBC 10/13/18 Range/Units 05:50 WBC 6.46 (4.8-10.8) K/uL Hgb 14.4 (14.0-18.0) g/dL Hct 41.1 L (42-52) % Plt Count 223 (130-400) K/uL BMP 10/13/18 05:50 Sodium 141 Potassium 3.9 D Chloride 111 H Carbon Dioxide 24 BUN 21 H Creatinine 1.31 Glucose 95 Calcium 8.8
[2018-10-13] MEDS ORDERED: STROKE PATIENT DISCHARGE STA (12:09)
--- NOTE | 2018-10-13 12:16 | Discharge Summary ---
Date of Service October 13, 2018 Admission HPI Per Admitting Provider 68-year-old male who presents to the ED with difficulty speaking. Patient was driving to [place] from [place] early this morning and around 6:30 AM while driving, he developed expressive aphasia. Patient's was with him at the time and reports that he was only able to get a couple of words out. Symptoms lasted for about 15 to 20 minutes and resolved on their own. There is no facial droop or drooling noted. Patient denies unilateral weakness, numbness, tingling. No headache, blurred or double vision. Patient reports he otherwise been feeling well recently. No chest pain or shortness of breath. Denies abdominal pain, nausea, vomiting, diarrhea. No lightheadedness, dizziness, diaphoresis, syncopal events. He denies any urinary symptoms. In the ED, head CT and head/neck CTA are all negative for acute findings. Labs are unremarkable. Admission Exam Per Admitting Provider Constitutional: WD/WN, vitals as above Eyes: PERRL, conjunctivae normal, anicteric sclerae ENMT: external ear and nose normal, oropharynx normal Respiratory: normal respiratory effort, lungs clear to auscultation Cardiovascular: Rate/Rhythm: regular rate and regular rhythm Vessels: normal peripheral pulses Extremities: no edema Gastrointestinal (Abdomen): normal bowel sounds, soft, nontender, no hepatosplenomegaly Musculoskeletal: no cyanosis or clubbing, extremities motor strength 5/5 Skin: no rashes, warm and dry Neurologic: PERRL, EOMI, accommodation nl, no face palsy, no dysarthria moves all extremities and awake Motor/Sensory: no pronator drift Coordination: normal [id number] test and normal [id number] test Psychiatric: A+Ox3, euthymic affect Principal Diagnosis Discharge Information Discharge Diagnosis Transient ischemic attack Carotid artery disease Discharge Goals Decrease discomfort,Improve function,Improve disease control Discharge Activity Limitations Resume your previous activity Discharge Data Allergies Allergy/AdvReac Type Severity Reaction Status Date / Time No Known Allergies Allergy Unverified 10/12/18 08:48 Consultations 10/12/18 10:37 ED Decision to Admit Stat 10/12/18 13:48 Consult Case Management - Discharge Planning Routine Consult Health Information Management Stat Consult Neurology Routine Procedures Performed --Brain MRI:No acute intracranial abnormality, specifically no acute or subacute infarction. No abnormal enhancement. Suggestion of mild to moderate chronic microvascular ischemic disease. Remote infarct about the anterosuperior left frontal lobe near the vertex. --Head CTA:No aneurysm, dissection, high-grade stenosis or proximal branch occlusion. Severe mixed plaque about the left carotid bulb results in 50% luminal narrowing of the proximal left ICA. Encephalomalacia about the anteromedial left frontal lobe from remote infarct. --Neck CTA:No aneurysm, dissection, high-grade stenosis or proximal branch occlusion. Severe mixed plaque about the left carotid bulb results in 50% luminal narrowing of the proximal left ICA. Encephalomalacia about the anteromedial left frontal lobe from remote infarct. 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 No abnormal enhancement. Suggestion of mild to moderate chronic microvascular ischemic disease. Remote infarct about the anterosuperior left frontal lobe near the vertex. --Head CTA:No aneurysm, dissection, high-grade stenosis or proximal branch occlusion. Severe mixed plaque about the left carotid bulb results in 50% serenity nal narrowing of the proximal left ICA. Encephalomalacia about the anteromedial left frontal lobe from remote infarct. --Neck CTA:No aneurysm, dissection, high-grade stenosis or proximal branch occlusion. Severe mixed plaque about the left carotid bulb results in 50% luminal narrowing of the proximal left ICA. Encephalomalacia about the anteromedial left frontal lobe from remote infarct. --Aphasia Resolved --Continue aspirin, Brilinta, statin --Appreciate Neurology Input --Plan to be evaluated by vascular surgery at [facility] next week --Needs follow-up with neurology upon discharge (2) CAD (coronary artery disease): H/O stents in 2008 and 06/2018 Continue beta-tamar, statin, aspirin, Brilinta (3) DVT prophylaxis: SCDs, ambulate Code Status Full Code Disposition: Plan to discharge home today Total Time Total Time Spent Total Time Spent (In Minutes): 33 minutes Total Time Includes: Examination of the Patient, Discharge Planning, Medication Reconciliation, Communication With Other Providers and Other Discharge Plan Discharge Items Patient Disposition: Home - Self-Care Reason For Visit: TIA Discharge Diagnosis: Transient ischemic attack Carotid artery disease Discharge Goals: Decrease discomfort, Improve disease control and Improve function Activity: Resume your previous activity Exercise/Sports: Gradually increase as tolerated Non-emergency contact: Primary Care Provider and Neurologist Call non-emergency contact if: you have any medication questions, your symptoms worsen, your pain is not controlled, your pain is worsening, your pain is unusual for you, your pain is concerning for you and you have a fever Follow-up/Referrals: Porsha Junior PA-C [Primary Care Provider] - Diet: Heart Healthy [facility] Provider Instructions: Follow-up with your primary care physician Dr. Junior in 1 week as advised Follow-up with your neurologist Stefani Yañez PA-C on October 24, 2018 at 11:20 AM Follow-up with your vascular surgeon at [facility] for evaluation of carotid stenosis as scheduled Seek immediate medical attention if your symptoms reoccur or worsen Risk Factors for Stroke: You can reduce your chances of stroke by working with your medical provider to adopt a healthy lifestyle. Some specific ways to lower your chance of stroke are: * If you are a smoker, now is the time to stop smoking cigarettes * If you are diabetic, improve the control of your blood sugars * Avoid excessive amounts of alcohol * Control high blood pressure * Lose weight if you are overweight * Be sure to lead an active lifestyle * Eat a healthy diet low in salt, cholesterol and fat You should know about other risk factors for stroke that you are unable to control. These include: * Age 55 years or older * Male gender * Certain racial groups: , or / * Family History of Stroke, Mini stroke or Heart Attack * Sickle Cell Disease Follow Up: It is important for you to keep your follow up appointments with your medical provider. Who to Call and When: Medical Emergencies: Call 911 immediately if you experience any of the following warning signs and symptoms of Stroke: * Sudden numbness or weakness of the face, arm or leg, especially on one side of the body * Sudden confusion, trouble speaking or understanding * Sudden trouble seeing in one or both eyes * Sudden trouble walking, dizziness, loss of balance or coordination * Sudden severe headache with no cause Do not delay calling 911 if you experience any warning signs or symptoms of a stroke. Delay in seeking medical attention may affect what treatments can be given to you. . Prescriptions: Continued glucosamine sulfate [Glucosamine] 500 mg Tablet 500 mg PO DAILY RF: 0 aspirin [Aspir-81] 81 mg Tablet,Delayed Release (Dr/Ec) 81 mg PO DAILY RF: 0 famotidine 20 mg tablet 20 mg PO BID RF: 0 gabapentin 100 mg capsule 100 mg PO HS RF: 0 rosuvastatin 20 mg tablet 30 mg PO HS RF: 0 metoprolol tartrate 25 mg tablet 25 mg PO BID RF: 0 fenofibric acid (choline) 135 mg capsule,delayed release(DR/EC) 135 mg PO DAILY RF: 0 Brilinta 90 mg tablet 90 mg PO BID RF: 0 Stand-Alone Forms: Medications to Prevent Stroke, [facility]/Other Patient Handouts: TIA Discharge Orders: Discharge Order (Routine); Ordered 10/13/18 Ordered By: Fer Lawler Admission Data Admit Date/Time: 10/12/18 11:42 Attending Provider: Fer Lalwer Admit Provider: Fer Lawler Primary Care Provider: Porsha Junior Other Providers: Conrado Hernandez John E Service: Telemetry Other Interventions: Discharge Summary Assessment (RN) Last Done: 10/13/18 12:54 Pending Studies at Discharge: No DC Date/Time DO NOT enter until pt leaves facility: 10/13/18 13:30
== END 2018-10-13 13:30 | disposition home or self-care (01) ==
LOC: 2S 08:09 → ED 08:09 → 2S 12:42